=== PATIENT | male | born 1960 | race African-American/Black ===

== ENCOUNTER 2016-10-31 11:07 | Emergency (ER) | payer MEDICAID ==
[~2016-10-31] VITALS: Ht 188 cm; Wt 98.0 kg
[2016-10-31] MEDS ORDERED: HYDRALAZINE 20MG/ML VIAL IV ONE (12:30)
[2016-10-31 12:42] LABS: BASOPHILS % 0.6 % (0.0-2.0); HEMATOCRIT. 40.9 % (42.0-52.0); HEMOGLOBIN. 12.8 g/dL (14.0-18.0); LYMPHOCYTES % 15.1 % (20.0-50.0); MEAN CORPUSCULAR HEMOGLOBIN 21.6 pg (28.0-32.0); MEAN CORPUSCULAR VOLUME 69.2 fL (80.0-94.0); MEAN PLATELET VOLUME 7.8 fl (7.4-10.4); MONOCYTES % 5.5 % (2.0-8.0); NEUTROPHILS % 76.8 % (40.0-76.0); PLATELET 248 x1000/uL (130-400); RED BLOOD CELL COUNT 5.91 mill/uL (4.7-6.1); RED CELL DISTRIBUTION WIDTH 15.3 % (11.6-14.6)
[2016-10-31 12:49] LABS: PROTHROMBIN TIME 10.6 sec
[2016-10-31 12:59] LABS: CARBON DIOXIDE 34 mEq/L (21-32); CHLORIDE 101 mEq/L (98-107); ETHANOL BLOOD < 10 mg/dL; TROPONIN I 0.12 ng/mL (0.00-0.04)
[2016-10-31 13:06] LABS: PLATELET ESTIMATE NORMAL
[2016-10-31 13:29] VITALS: BP 209/115
[2016-10-31 13:29] LABS: *AMPHETAMINES SCREEN URINE NEGATIVE (NEGATIVE); *BARBITURATES SCREEN URINE NEGATIVE (NEGATIVE); *BENZODIAZEPINES SCREEN URINE NEGATIVE (NEGATIVE); *COCAINE SCREEN URINE NEGATIVE (NEGATIVE); CANNABINOID URINE SCREEN NEGATIVE (NEGATIVE); METHADONE URINE SCREEN NEGATIVE (NEGATIVE); OPIATES URINE SCREEN NEGATIVE (NEGATIVE); PHENCYCLIDINE URINE SCREEN NEGATIVE (NEGATIVE)
[2016-11-01] MEDS ORDERED: HUM10VIA9 SQ (15:40)
[2016-11-02] MEDS ORDERED: HYDR-4135 PO (12:19)
[2016-11-02] MEDS ORDERED: AMLO10TA80 PO (12:19)
[2016-11-02] MEDS ORDERED: ASPI-1160 PO (12:19)
[2016-11-02] MEDS ORDERED: FURO-151 PO (12:19)
== END 2016-10-31 13:54 | disposition left against medical advice (07) ==
LOC: ER 12:20 → CANBEDREQ 20:05
DX: I10 Essential (primary) hypertension (principal); E11.9 Type 2 diabetes mellitus without complications
CPT/HCPCS: 36415; 70450; 71010; 80053; 80305; 83880; 84484; 85025; 85610; 93005; 96374; 99285; G0482; J0360; Z7610

== ENCOUNTER 2016-12-02 12:15 | Emergency (ER) | payer SELFPAY ==
[~2016-12-02] VITALS: Ht 188 cm; Wt 96.0 kg
[~2016-12-02 12:15] MED LIST: AMLO10TA80 PO; ASPI-1160 PO; FURO-151 PO; HYDR-4135 PO
[2016-12-02 13:33] LABS: CARBON DIOXIDE 31 mEq/L (21-32); CHLORIDE 100 mEq/L (98-107)
[2016-12-02] MEDS ORDERED: AMLODIPINE 10MG TABLET PO ONE (14:00)
[2016-12-02 14:04] VITALS: BP 173/89
== END 2016-12-02 14:07 | disposition home or self-care (01) ==
LOC: ER 13:13
DX: I10 Essential (primary) hypertension (principal); E11.9 Type 2 diabetes mellitus without complications; Z79.82 Long term (current) use of aspirin
CPT/HCPCS: 36415; 80048; 99283

== ENCOUNTER 2017-06-29 12:18 | Inpatient (IN) | payer OTHER ==
[~2017-06-29] VITALS: Ht 188 cm; Wt 93.9 kg
[2017-06-29] MEDS ORDERED: SODIUM CHLORIDE 0.9% 1,000 ML IV ONE (14:24)
[2017-06-29 14:46] LABS: HEMATOCRIT. 48.1 % (42.0-52.0); HEMOGLOBIN. 15.1 g/dL (14.0-18.0); MEAN CORPUSCULAR HEMOGLOBIN 22.6 pg (28.0-32.0); MEAN CORPUSCULAR VOLUME 71.9 fL (80.0-94.0); MEAN PLATELET VOLUME 8.6 fl (7.4-10.4); PLATELET 209 x1000/uL (130-400); RED BLOOD CELL COUNT 6.69 mill/uL (4.7-6.1); RED CELL DISTRIBUTION WIDTH 15.5 % (11.6-14.6)
[2017-06-29 15:01] LABS: AMYLASE 65 IU/L (25-115); CHLORIDE 95 mEq/L (98-107)
[2017-06-29 15:02] LABS: BETA HYDROXYBUTYRATE 7.1 mMol/L (0.0-0.3)
[2017-06-29] MEDS ORDERED: INSULIN REGULAR (HUMULIN R) 300UNITS/3ML IV ONE (15:30)
[2017-06-29 15:50] LABS: BG BASE EXCESS -17.3 mmol/L (-2.0-2.0); BG CARBOXYHEMOGLOBIN 0.9 % (0.5-1.5); BG DEOXYHEMOGLOBIN 2.8 % (0.0-5.0); BG FRACTION INSPIRED OXYGEN 21; BG HCO3 ACT 9.3 mmol/L (22.0-26.0); BG METHEMOGLOBIN 0.3 % (0.0-1.5); BG OXYGEN SATURATION 97.2 % (92.0-98.5); BG PCO2 25.7 mmHg (35.0-45.0); BG PH 7.178 (7.350-7.450); BG PO2 102.8 mmHg (75.0-100.0); BG SAMPLE SITE RIGHT BRACHIAL; BG VENT MODE ROOM AIR
[2017-06-29 16:18] LABS: PLATELET ESTIMATE NORMAL
[2017-06-29] MEDS: INSULIN REGULAR (DRIP) 100 UNITS in SODIUM CHLORIDE 0.9% 99 ML IV SCH ×2 (16:30→20:00)
[2017-06-29] MEDS ORDERED: DEXT 5%/0.45% NACL 1000ML 1,000 ML IV SCH (18:45)
[2017-06-29] MEDS ORDERED: ONDANSETRON HCL 4MG/2ML INJ IV PRN (18:45)
[2017-06-29] MEDS ORDERED: SODIUM CHLORIDE 0.45% 1,000 ML IV SCH (18:45)
[2017-06-29] MEDS ORDERED: DEXTROSE 50% WATER 50ML SYRINGE IV PRN ×2 (18:45)
[2017-06-29] MEDS: BLOOD SUGAR DIAGNOSTIC STRIP TEST SCH ×5 (19:00→23:03)
[2017-06-29 19:22] VITALS: BP 147/80
[2017-06-29 19:36] LABS: PHOSPHORUS 4.7 mg/dL (2.5-4.9)
[2017-06-29 20:00] VITALS: BP 151/86
[2017-06-29] MEDS: INSULIN REGULAR (DRIP) 100 UNITS in SODIUM CHLORIDE 0.9% 100 ML IV SCH ×2 (20:07→22:05)
[2017-06-29 21:00] VITALS: BP 167/96
[2017-06-29] MEDS: ENOXAPARIN 40MG/0.4ML SYR SUBCUT SCH (21:00)
[2017-06-29 22:00] VITALS: BP 173/97
[2017-06-29 23:01] VITALS: BP 163/95
[2017-06-30] VITALS (20 sets, daily range): BP systolic 125–173; BP diastolic 60–101
[2017-06-30] MEDS: BLOOD SUGAR DIAGNOSTIC STRIP TEST SCH ×19 (00:16→20:35)
[2017-06-30] MEDS: DEXT 5%/0.45% NACL 1000ML 1,000 ML IV SCH ×3 (01:22→08:00)
[2017-06-30 09:02] LABS: BASOPHILS % 0.1 % (0.0-2.0); HEMATOCRIT. 42.5 % (42.0-52.0); HEMOGLOBIN. 13.6 g/dL (14.0-18.0); LYMPHOCYTES % 9.7 % (20.0-50.0); MEAN CORPUSCULAR HEMOGLOBIN 21.9 pg (28.0-32.0); MEAN CORPUSCULAR VOLUME 68.5 fL (80.0-94.0); MEAN PLATELET VOLUME 8.3 fl (7.4-10.4); MONOCYTES % 9.9 % (2.0-8.0); NEUTROPHILS % 80.3 % (40.0-76.0); PLATELET 230 x1000/uL (130-400); RED BLOOD CELL COUNT 6.21 mill/uL (4.7-6.1)
[2017-06-30 09:24] LABS: CHLORIDE 106 mEq/L (98-107)
[2017-06-30] MEDS: AMLODIPINE 10MG TABLET PO SCH ×2 (09:28→09:30)
[2017-06-30] MEDS: PANTOPRAZOLE SODIUM 40 MG/VIAL IV SCH (09:28)
[2017-06-30] MEDS ORDERED: CLONIDINE 0.1MG TABLET PO SCH (12:00)
[2017-06-30] MEDS: AZITHROMYCIN 500 MG TABLET PO SCH (12:57)
[2017-06-30] MEDS ORDERED: INSULIN GLARGINE UD 100 UNITS/ML SYR SUBCUT SCH (13:00)
[2017-06-30] MEDS: INSULIN REGULAR (DRIP) 100 UNITS in SODIUM CHLORIDE 0.9% 100 ML IV SCH (14:58)
[2017-06-30] MEDS: INSULIN LISPRO 100 UNITS/ML SUBCUT SCH ×2 (17:51→20:30)
[2017-06-30] MEDS ORDERED: THROAT LOZENGES-BENZOCAINE/MENTH/CETYLPYRD CL LOZENGES MM PRN (18:30)
[2017-06-30] MEDS: CLONIDINE 0.1MG TABLET PO PRN (20:27)
[2017-06-30] MEDS: ENOXAPARIN 40MG/0.4ML SYR SUBCUT SCH (20:28)
[2017-06-30] MEDS ORDERED: ACETAMINOPHEN 325MG TABLET PO PRN (23:15)
[2017-07-01] VITALS: BP 152/95
[2017-07-01 01:27] VITALS: BP 163/86
[2017-07-01 04:00] VITALS: BP 163/86
[2017-07-01] MEDS: BLOOD SUGAR DIAGNOSTIC STRIP TEST SCH ×2 (06:30→12:33)
[2017-07-01 08:00] VITALS: BP 153/90
[2017-07-01] MEDS: AZITHROMYCIN 500 MG TABLET PO SCH (08:39)
[2017-07-01] MEDS: PANTOPRAZOLE SODIUM 40 MG/VIAL IV SCH (08:39)
[2017-07-01] MEDS: AMLODIPINE 10MG TABLET PO SCH (08:41)
[2017-07-01] MEDS: INSULIN LISPRO 100 UNITS/ML SUBCUT SCH ×2 (08:42→13:04)
[2017-07-01] MEDS ORDERED: LOSARTAN POTASSIUM 50 MG TABLET PO SCH (09:00)
[2017-07-01] MEDS: CLONIDINE 0.1MG TABLET PO PRN (09:55)
[2017-07-01] MEDS ORDERED: INSULIN GLARGINE UD 100 UNITS/ML SYR SUBCUT SCH (10:00)
[2017-07-01 12:00] VITALS: BP 140/83
[2017-07-01 14:20] VITALS: BP 140/83
[2017-07-02] MEDS ORDERED: FAMOTIDINE 20MG TABLET PO SCH (09:00)
== END 2017-07-01 15:10 | disposition home or self-care (01) | DRG 638 ==
LOC: ER 13:41 → CVICU 15:20 → EDBEDREQ 15:56 → ENRESERV 16:01 → 6EST 07-01 00:42
PROVIDERS: ADMIT Internal Medicine; ATTEND Internal Medicine
DX: E11.10 Type 2 diabetes mellitus with ketoacidosis without coma (principal); N17.9 Acute kidney failure, unspecified; E11.22 Type 2 diabetes mellitus with diabetic chronic kidney disease; I10 Essential (primary) hypertension; J40 Bronchitis, not specified as acute or chronic; J06.9 Acute upper respiratory infection, unspecified; Z79.4 Long term (current) use of insulin; Z79.82 Long term (current) use of aspirin; Z79.899 Other long term (current) drug therapy; E11.65 Type 2 diabetes mellitus with hyperglycemia; N18.2 Chronic kidney disease, stage 2 (mild)
CPT/HCPCS: 36415; 36600; 71045; 80048; 82010; 82150; 82375; 82805; 82962; 83735; 84100; 86710; 87804; 93005; 96361; 96374; 99291; C9113; J1650; J1815; J3490; J7030; J7050

== ENCOUNTER 2021-02-22 15:49 | Emergency (ER) | payer MEDICAID, OTHER ==
[~2021-02-22] VITALS: Ht 188 cm; Wt 102.0 kg
[2021-02-22] MEDS ORDERED: AMLODIPINE 10MG TABLET PO ONE (16:30)
[2021-02-22] MEDS ORDERED: SODIUM CHLORIDE 0.9% 1,000 ML IV ONE ×2 (16:30→18:30)
[2021-02-22] MEDS ORDERED: INS NPH/REG HM 70-30 100 UNITS/ML 3ML VIAL (HUMULIN 70-30) SUBCUT ONE (16:30)
[2021-02-22 16:41] LABS: BASOPHILS % 0.9 % (0.0-2.0); EOSINOPHILS % 6.6 % (0.0-5.0); HEMATOCRIT. 41.9 % (42.0-52.0); HEMOGLOBIN. 12.9 g/dL (14.0-18.0); LYMPHOCYTES % 22.1 % (20.0-50.0); MEAN CORPUSCULAR HEMOGLOBIN 21.9 pg (28.0-32.0); MEAN CORPUSCULAR VOLUME 71.3 fL (80.0-94.0); MEAN PLATELET VOLUME 9.3 fl (7.4-10.4); MONOCYTES % 6.3 % (2.0-8.0); NEUTROPHILS % 64.1 % (40.0-76.0); PLATELET 232 x1000/uL (130-400); RED BLOOD CELL COUNT 5.88 mill/uL (4.7-6.1); RED CELL DISTRIBUTION WIDTH 14.7 % (11.6-14.6)
[2021-02-22 16:47] LABS: CHLORIDE 92 mEq/L (98-107)
[2021-02-22 17:01] LABS: CLARITY URINE CLEAR (CLEAR); COLOR URINE YELLOW (YELLOW); KETONES URINE 1+ (NEGATIVE); LEUKOCYTE ESTERASE URINE NEGATIVE (NEGATIVE); NITRITE URINE NEGATIVE (NEGATIVE); OCCULT BLOOD URINE 1+ (NEGATIVE); PROTEIN URINE 2+ (NEGATIVE); SPECIFIC GRAVITY URINE 1.029 (1.005-1.030); UROBILINOGEN URINE 0.2 E.U./dL (0.2-1.0)
[2021-02-22 18:10] VITALS: BP 180/80
[2021-02-22] MEDS ORDERED: INSULIN REGULAR (HUMULIN R) 300UNITS/3ML VIAL SUBCUT ONE (18:30)
[2021-02-22] MEDS ORDERED: INSU100I24 SQ (18:31)
[2021-02-22] MEDS ORDERED: AMLO5TAB4 MT (18:34)
== END 2021-02-22 20:10 | disposition left against medical advice (07) ==
LOC: ER 15:49
DX: E11.65 Type 2 diabetes mellitus with hyperglycemia (principal); I10 Essential (primary) hypertension; Z98.890 Other specified postprocedural states; Z79.899 Other long term (current) drug therapy; Z79.82 Long term (current) use of aspirin
CPT/HCPCS: 36415; 80053; 81003; 82962; 85025; 93005; 96360; 96372; 99284; J1815; J7030

== ENCOUNTER 2021-04-01 13:31 | Emergency (ER) | payer MEDICAID ==
[~2021-04-01] VITALS: Ht 188 cm; Wt 102.0 kg
[~2021-04-01 13:31] MED LIST changes: +AMLO5TAB4 MT; +INSU100I24 SQ
[2021-04-01] MEDS ORDERED: AMLO5TAB88 MT (15:39)
[2021-04-01 16:02] VITALS: BP 160/80
== END 2021-04-01 16:03 | disposition home or self-care (01) ==
LOC: ER 13:31
DX: Z76.0 Encounter for issue of repeat prescription (principal); I10 Essential (primary) hypertension
CPT/HCPCS: 99282; 99283

== ENCOUNTER 2021-09-06 17:48 | Inpatient (IN) | payer MEDICAID, OTHER ==
[~2021-09-06] VITALS: Ht 188 cm; Wt 93.0 kg
[~2021-09-06 17:48] MED LIST changes: +AMLO5TAB88 MT
[2021-09-06 18:51] LABS: HEMATOCRIT. 41.1 % (42.0-52.0); HEMOGLOBIN. 11.7 g/dL (14.0-18.0); MEAN CORPUSCULAR HEMOGLOBIN 22.1 pg (28.0-32.0); MEAN CORPUSCULAR VOLUME 77.4 fL (80.0-94.0); MEAN PLATELET VOLUME 10.6 fl (7.4-10.4); PLATELET 294 x1000/uL (130-400); RED BLOOD CELL COUNT 5.31 mill/uL (4.7-6.1)
[2021-09-06] MEDS ORDERED: SODIUM CHLORIDE 0.9% 1,000 ML IV ONE (19:00)
[2021-09-06 19:04] LABS: CHLORIDE 81 mEq/L (98-107)
[2021-09-06 19:14] LABS: PLATELET ESTIMATE NORMAL
[2021-09-06 19:26] LABS: CLARITY URINE CLEAR (CLEAR); COLOR URINE YELLOW (YELLOW); KETONES URINE 1+ (NEGATIVE); LEUKOCYTE ESTERASE URINE NEGATIVE (NEGATIVE); NITRITE URINE NEGATIVE (NEGATIVE); OCCULT BLOOD URINE NEGATIVE (NEGATIVE); PROTEIN URINE 1+ (NEGATIVE); SPECIFIC GRAVITY URINE 1.024 (1.005-1.030); UROBILINOGEN URINE 0.2 E.U./dL (0.2-1.0)
[2021-09-06] MEDS ORDERED: SODIUM CHLORIDE 0.9% 1,000 ML IV STA (19:39)
[2021-09-06] MEDS ORDERED: DEXTROSE 50% WATER 50ML SYRINGE IV NR (19:45)
[2021-09-06] MEDS ORDERED: CALCIUM CHLORIDE 1GM/10ML SYR IV NR (19:45)
[2021-09-06] MEDS ORDERED: SODIUM POLYSTYRENE SULFONATE 15 G/60 ML BOT PO NR (19:45)
[2021-09-06] MEDS ORDERED: ALBUTEROL (0.083%) 2.5MG/3ML NEB HHN NR (19:45)
[2021-09-06] MEDS ORDERED: SODIUM BICARBONATE 8.4% 1 MEQ/ML 50ML SYR IV NR ×2 (20:45→21:00)
[2021-09-06] MEDS ORDERED: INSULIN REGULAR (HUMULIN R) 300UNITS/3ML VIAL IV NR (20:45)
[2021-09-06] MEDS ORDERED: FUROSEMIDE 100MG/10ML VIAL IV NR (20:45)
[2021-09-06] MEDS ORDERED: INSULIN REGULAR (DRIP) 100 UNITS in SODIUM CHLORIDE 0.9% 100 ML IV ONE (21:00)
[2021-09-06] MEDS ORDERED: CALCIUM CHLORIDE IV NR (21:21)
[2021-09-06 22:25] LABS: BG BASE EXCESS -24.9 mmol/L (-2.0-2.0); BG CARBOXYHEMOGLOBIN 0.7 % (0.5-1.5); BG DEOXYHEMOGLOBIN 1.7 % (0.0-5.0); BG HCO3 ACT 3.5 mmol/L (22.0-26.0); BG METHEMOGLOBIN 0.3 % (0.0-1.5); BG OXYGEN SATURATION 98.3 % (92.0-98.5); BG OXYHEMOGLOBIN 97.3 % (94.0-97.0); BG PH 7.053 (7.350-7.450); BG PO2 149.6 mmHg (75.0-100.0); BG TOTAL HEMOGLOBIN 12.2 g/dL (12.0-18.0)
[2021-09-06] MEDS ORDERED: INSULIN REGULAR (DRIP) 100 UNITS in SODIUM CHLORIDE 0.9% 100 ML IV STA (23:33)
[2021-09-06] MEDS ORDERED: INSULIN REGULAR 100U/100ML PMX 100 ML IV NR (23:45)
[2021-09-06] MEDS ORDERED: INSULIN LISPRO 100 UNITS/ML SUBCUT NR (23:45)
[2021-09-06 23:47] LABS: PHOSPHORUS 10.1 mg/dL (2.5-4.9)
[2021-09-07 02:33] LABS: PHOSPHORUS 7.4 mg/dL (2.5-4.9)
[2021-09-07 07:48] LABS: HEMATOCRIT. 33.6 % (42.0-52.0); HEMOGLOBIN. 10.8 g/dL (14.0-18.0); MEAN CORPUSCULAR HEMOGLOBIN 21.8 pg (28.0-32.0); MEAN CORPUSCULAR VOLUME 68.1 fL (80.0-94.0); MEAN PLATELET VOLUME 9.2 fl (7.4-10.4); PLATELET 272 x1000/uL (130-400); RED BLOOD CELL COUNT 4.94 mill/uL (4.7-6.1); RED CELL DISTRIBUTION WIDTH 13.8 % (11.6-14.6)
[2021-09-07 07:56] LABS: PHOSPHORUS 2.4 mg/dL (2.5-4.9)
[2021-09-07] MEDS ORDERED: ONDANSETRON HCL 4MG/2ML INJ IV PRN (08:15)
[2021-09-07] MEDS ORDERED: DEXTROSE 50% WATER 50ML SYRINGE IV PRN (08:15)
[2021-09-07] MEDS: SODIUM CHLORIDE 0.9% 1,000 ML IV SCH ×2 (09:13→16:41)
[2021-09-07] MEDS: INSULIN GLARGINE 100 UNITS/ML SUBCUT SCH ×2 (10:27→22:06)
[2021-09-07 10:47] LABS: PLATELET ESTIMATE NORMAL
[2021-09-07 12:00] VITALS: BP 146/65
[2021-09-07] MEDS: BLOOD SUGAR DIAGNOSTIC STRIP TEST SCH ×3 (12:50→21:13)
[2021-09-07] MEDS: INSULIN LISPRO 100 UNITS/ML SUBCUT SCH ×5 (13:11→21:12)
[2021-09-07] MEDS ORDERED: AMLO5TAB88 MT (14:10)
[2021-09-07] MEDS ORDERED: HYDR25TA PO (14:10)
[2021-09-07] MEDS ORDERED: ASPI-1153 PO (14:10)
[2021-09-07] MEDS ORDERED: VALS320T16 PO (14:10)
[2021-09-07] MEDS ORDERED: METOPROLOL (14:10)
[2021-09-07] MEDS ORDERED: [UNRECOGNIZED DRUG - OTHER] (14:11)
[2021-09-07] MEDS ORDERED: SODIUM PHOS,M-BASIC-D-BASIC 15 MM in DEXT 5% WATER 245 ML IV SCH (15:00)
[2021-09-07] MEDS: BENZONATATE 100MG CAPSULE PO PRN (15:44)
[2021-09-07 16:00] VITALS: BP 150/67
[2021-09-07 16:04] VITALS: BP 146/65
[2021-09-07 20:00] VITALS: BP 128/66
[2021-09-08] VITALS: BP 126/62
[2021-09-08] MEDS: SODIUM CHLORIDE 0.9% 1,000 ML IV SCH ×2 (01:38→08:44)
[2021-09-08 04:00] VITALS: BP 143/66
[2021-09-08] MEDS: ACETAMINOPHEN 325MG TABLET PO PRN ×3 (04:12→11:07)
[2021-09-08] MEDS: BLOOD SUGAR DIAGNOSTIC STRIP TEST SCH ×2 (07:20→12:58)
[2021-09-08] MEDS: INSULIN LISPRO 100 UNITS/ML SUBCUT SCH ×4 (07:20→13:09)
[2021-09-08 08:00] VITALS: BP 150/83
[2021-09-08 08:41] LABS: PHOSPHORUS 2.8 mg/dL (2.5-4.9)
[2021-09-08 08:52] LABS: HEMATOCRIT. 38.6 % (42.0-52.0); HEMOGLOBIN. 12.2 g/dL (14.0-18.0); MEAN CORPUSCULAR VOLUME 69.8 fL (80.0-94.0); MEAN PLATELET VOLUME 9.3 fl (7.4-10.4); PLATELET 216 x1000/uL (130-400); RED BLOOD CELL COUNT 5.53 mill/uL (4.7-6.1); RED CELL DISTRIBUTION WIDTH 14.3 % (11.6-14.6)
[2021-09-08] MEDS ORDERED: AMLODIPINE 10MG TABLET PO SCH (10:30)
[2021-09-08] MEDS: INSULIN GLARGINE 100 UNITS/ML SUBCUT SCH (10:51)
[2021-09-08 12:00] VITALS: BP 163/90
[2021-09-08] MEDS ORDERED: INSU100I28 SQ (13:11)
[2021-09-08 13:27] VITALS: BP 116/66
[2021-09-08] MEDS: BENZONATATE 100MG CAPSULE PO PRN (13:53)
[2021-09-08 14:33] LABS: PLATELET ESTIMATE NORMAL
== END 2021-09-08 14:40 | disposition home or self-care (01) | DRG 420 ==
LOC: ER 17:48 → MICUSO 20:35 → 6EST 09-07 11:01
PROVIDERS: ADMIT Internal Medicine; ATTEND Internal Medicine
DX: E11.10 Type 2 diabetes mellitus with ketoacidosis without coma (principal); N17.0 Acute kidney failure with tubular necrosis; E87.8 Other disorders of electrolyte and fluid balance, not elsewhere classified; E87.1 Hypo-osmolality and hyponatremia; E87.5 Hyperkalemia; E78.5 Hyperlipidemia, unspecified; D72.829 Elevated white blood cell count, unspecified; D64.9 Anemia, unspecified; I12.9 Hypertensive chronic kidney disease with stage 1 through stage 4 chronic kidney disease, or unspecified chronic kidney disease; E11.22 Type 2 diabetes mellitus with diabetic chronic kidney disease; N18.2 Chronic kidney disease, stage 2 (mild); Z79.4 Long term (current) use of insulin; Z79.82 Long term (current) use of aspirin; Z79.899 Other long term (current) drug therapy; Z82.49 Family history of ischemic heart disease and other diseases of the circulatory system
CPT/HCPCS: 36415; 36600; 71045; 80048; 80053; 81003; 82010; 82375; 82805; 82962; 83036; 83735; 84100; 84145; 84484; 85025; 93005; 93306; 94640; 99291; J1815; J1940; J3490; J7030; J7050; J7060

== ENCOUNTER 2021-12-19 12:59 | Inpatient (IN) | payer OTHER ==
[2021-12-19] VITALS (11 sets, daily range): BP systolic 119–133; BP diastolic 61–95
[~2021-12-19] VITALS: Ht 188 cm; Wt 93.4 kg
[~2021-12-19 12:59] MED LIST changes: +ASPI-1153 PO; -FURO-151 PO; +INSU100I28 SQ; +METOPROLOL; +VALS320T16 PO; +[UNRECOGNIZED DRUG - OTHER]
[2021-12-19] MEDS ORDERED: SODIUM CHLORIDE 0.9% 1,000 ML IV ONE (13:15)
[2021-12-19 13:26] LABS: HEMATOCRIT. 34.5 % (42.0-52.0); HEMOGLOBIN. 9.4 g/dL (14.0-18.0); MEAN CORPUSCULAR HEMOGLOBIN 21.4 pg (28.0-32.0); MEAN CORPUSCULAR VOLUME 78.9 fL (80.0-94.0); MEAN PLATELET VOLUME 9.9 fl (7.4-10.4); PLATELET 324 x1000/uL (130-400); RED BLOOD CELL COUNT 4.37 mill/uL (4.7-6.1)
[2021-12-19 13:32] LABS: CHLORIDE 76 mEq/L (98-107)
[2021-12-19] MEDS ORDERED: LACTATED RINGERS 1,000 ML IV STA (13:51)
[2021-12-19] MEDS ORDERED: INSULIN REGULAR (DRIP) 100 UNITS in SODIUM CHLORIDE 0.9% 100 ML IV ONE (14:00)
[2021-12-19] MEDS ORDERED: DEXTROSE 50% WATER 50ML SYRINGE IV ONE (14:00)
[2021-12-19] MEDS ORDERED: ALBUTEROL (0.083%) 2.5MG/3ML NEB HHN ONE (14:00)
[2021-12-19] MEDS ORDERED: CALCIUM CHLORIDE 1GM/10ML SYR IV ONE (14:00)
[2021-12-19] MEDS ORDERED: INSULIN REGULAR (HUMULIN R) 300UNITS/3ML VIAL IV ONE (14:00)
[2021-12-19 14:27] LABS: PLATELET ESTIMATE NORMAL
[2021-12-19] MEDS ORDERED: INSULIN REGULAR 100U/100ML PMX 100 ML IV NR (14:30)
[2021-12-19] MEDS ORDERED: ONDANSETRON HCL 4MG/2ML INJ IV PRN (17:45)
[2021-12-19] MEDS ORDERED: CLONIDINE 0.1MG TABLET PO PRN (17:45)
[2021-12-19] MEDS ORDERED: DIPHENHYDRAMINE 50MG/ML VIAL IV PRN (17:45)
[2021-12-19] MEDS ORDERED: HYDROCODONE/ACETAMINOPHEN 5/325MG TABLET PO PRN (17:45)
[2021-12-19] MEDS ORDERED: MAGNESIUM/ALUMINUM HYDROXIDE/SIMETHICONE 30ML UDC PO PRN (17:45)
[2021-12-19] MEDS ORDERED: GUAIFENESIN 200MG/10ML SUGAR FREE UDC PO PRN (17:45)
[2021-12-19] MEDS ORDERED: ENOXAPARIN 40MG/0.4ML SYR SUBCUT SCH (17:45)
[2021-12-19] MEDS ORDERED: DOCUSATE SODIUM 100MG CAPSULE PO PRN (17:45)
[2021-12-19] MEDS ORDERED: IPRATROPIUM/ALBUTEROL 0.5-3(2.5)MG/3ML NEB HHN PRN (17:45)
[2021-12-19] MEDS ORDERED: MORPHINE SULFATE 2 MG/ML CPJ (NOT FOR IM USE) IV PRN (17:45)
[2021-12-19] MEDS ORDERED: DEXTROSE 50% WATER 50ML SYRINGE IV PRN ×2 (17:45)
[2021-12-19] MEDS ORDERED: ACETAMINOPHEN 325MG TABLET PO PRN (17:45)
[2021-12-19] MEDS ORDERED: HYDRALAZINE 20MG/ML VIAL IV PRN (17:45)
[2021-12-19] MEDS ORDERED: NALOXONE HCL 0.4MG/ML VIAL IV PRN (18:00)
[2021-12-19] MEDS: SODIUM CHLORIDE 0.45% 1,000 ML IV SCH (18:35)
[2021-12-19] MEDS: BLOOD SUGAR DIAGNOSTIC STRIP TEST SCH ×2 (18:35→18:59)
[2021-12-19 18:57] LABS: PHOSPHORUS 8.6 mg/dL (2.5-4.9)
[2021-12-19] MEDS: ENOXAPARIN 30MG/0.3ML SYR SUBCUT SCH (18:59)
[2021-12-19] MEDS ORDERED: SODIUM BICARBONATE 8.4% 1 MEQ/ML 50ML SYR IV NR (20:15)
[2021-12-19] MEDS: INSULIN REGULAR 100U/100ML PMX 100 ML IV SCH (20:30)
[2021-12-19 20:33] LABS: PHOSPHORUS 4.7 mg/dL (2.5-4.9)
[2021-12-19] MEDS ORDERED: SODIUM CHLORIDE 0.9% INJ 3ML FLUSH IVF SCH (22:00)
[2021-12-20] VITALS (49 sets, daily range): BP systolic 92–145; BP diastolic 46–76
[2021-12-20] MEDS: INSULIN REGULAR 100U/100ML PMX 100 ML IV SCH (00:11)
[2021-12-20] MEDS: SODIUM CHLORIDE 0.45% 1,000 ML IV SCH ×2 (02:14→12:25)
[2021-12-20] MEDS: BLOOD SUGAR DIAGNOSTIC STRIP TEST SCH ×10 (05:05→21:00)
[2021-12-20 05:32] LABS: CHLORIDE 105 mEq/L (98-107)
[2021-12-20 05:35] LABS: HEMATOCRIT. 32.9 % (42.0-52.0); HEMOGLOBIN. 10.4 g/dL (14.0-18.0); MEAN CORPUSCULAR HEMOGLOBIN 21.3 pg (28.0-32.0); MEAN CORPUSCULAR VOLUME 67.6 fL (80.0-94.0); MEAN PLATELET VOLUME 8.7 fl (7.4-10.4); PLATELET 318 x1000/uL (130-400); RED BLOOD CELL COUNT 4.87 mill/uL (4.7-6.1); RED CELL DISTRIBUTION WIDTH 14.6 % (11.6-14.6)
[2021-12-20 07:28] LABS: PLATELET ESTIMATE NORMAL
[2021-12-20] MEDS ORDERED: POTASSIUM CHLORIDE INJ 60 MEQ in DEXT 5% WATER 500 ML IV NR (08:00)
[2021-12-20] MEDS ORDERED: DEXTROSE 50% WATER 50ML SYRINGE IV PRN (12:30)
[2021-12-20] MEDS: INSULIN GLARGINE 100 UNITS/ML SUBCUT SCH (14:39)
[2021-12-20] MEDS: ENOXAPARIN 30MG/0.3ML SYR SUBCUT SCH (18:59)
[2021-12-20] MEDS: INSULIN LISPRO 100 UNITS/ML SUBCUT SCH ×2 (19:00→21:38)
[2021-12-21 04:00] VITALS: BP 137/57
[2021-12-21 05:58] LABS: HEMATOCRIT. 35.4 % (42.0-52.0); HEMOGLOBIN. 11.1 g/dL (14.0-18.0); MEAN CORPUSCULAR HEMOGLOBIN 21.4 pg (28.0-32.0); MEAN CORPUSCULAR VOLUME 68.1 fL (80.0-94.0); MEAN PLATELET VOLUME 8.9 fl (7.4-10.4); PLATELET 270 x1000/uL (130-400); RED BLOOD CELL COUNT 5.19 mill/uL (4.7-6.1); RED CELL DISTRIBUTION WIDTH 15.5 % (11.6-14.6)
[2021-12-21] MEDS: BLOOD SUGAR DIAGNOSTIC STRIP TEST SCH ×4 (06:47→20:47)
[2021-12-21] MEDS: INSULIN LISPRO 100 UNITS/ML SUBCUT SCH ×4 (06:57→20:46)
[2021-12-21 08:00] VITALS: BP 117/56
[2021-12-21] MEDS: SODIUM CHLORIDE 0.9% 1,000 ML IV SCH ×2 (09:19→18:16)
[2021-12-21] MEDS: INSULIN GLARGINE 100 UNITS/ML SUBCUT SCH (09:20)
[2021-12-21 12:00] VITALS: BP 138/73
[2021-12-21 16:00] VITALS: BP 137/72
[2021-12-21 16:44] LABS: PLATELET ESTIMATE NORMAL
[2021-12-21] MEDS: ENOXAPARIN 30MG/0.3ML SYR SUBCUT SCH (18:14)
[2021-12-21 20:00] VITALS: BP 137/79
[2021-12-22] VITALS: BP 132/76
[2021-12-22 04:00] VITALS: BP 118/67
[2021-12-22] MEDS: INSULIN LISPRO 100 UNITS/ML SUBCUT SCH ×2 (07:05→12:52)
[2021-12-22] MEDS: SODIUM CHLORIDE 0.9% 1,000 ML IV SCH (07:10)
[2021-12-22] MEDS: BLOOD SUGAR DIAGNOSTIC STRIP TEST SCH ×2 (07:41→11:39)
[2021-12-22 07:53] VITALS: BP 125/83
[2021-12-22 08:22] LABS: BASOPHILS % 0.3 % (0.0-2.0); EOSINOPHILS % 2.9 % (0.0-5.0); HEMATOCRIT. 31.6 % (42.0-52.0); HEMOGLOBIN. 10.1 g/dL (14.0-18.0); LYMPHOCYTES % 20.9 % (20.0-50.0); MEAN CORPUSCULAR HEMOGLOBIN 21.7 pg (28.0-32.0); MEAN CORPUSCULAR VOLUME 68.1 fL (80.0-94.0); MEAN PLATELET VOLUME 8.9 fl (7.4-10.4); MONOCYTES % 8.3 % (2.0-8.0); NEUTROPHILS % 67.6 % (40.0-76.0); PLATELET 239 x1000/uL (130-400); RED BLOOD CELL COUNT 4.64 mill/uL (4.7-6.1); RED CELL DISTRIBUTION WIDTH 14.8 % (11.6-14.6)
[2021-12-22 08:43] LABS: PHOSPHORUS 2.5 mg/dL (2.5-4.9)
[2021-12-22] MEDS: INSULIN GLARGINE 100 UNITS/ML SUBCUT SCH (09:35)
[2021-12-22 12:00] VITALS: BP 144/79
[2021-12-22 14:06] VITALS: BP 144/79
[2021-12-22] MEDS ORDERED: ENOXAPARIN 40MG/0.4ML SYR SUBCUT SCH (14:50)
== END 2021-12-22 15:15 | disposition home or self-care (01) | DRG 282 ==
LOC: ER 12:59 → MICUNO 14:27 → EDBEDREQTM 14:29 → EDBEDREQ 14:29 → ENRESERV 16:28 → MICUSO 18:34 → MICUNO 12-20 03:54 → 8WST 12-20 22:46
PROVIDERS: ADMIT Internal Medicine; ATTEND Internal Medicine
DX: K85.90 Acute pancreatitis without necrosis or infection, unspecified (principal); N17.0 Acute kidney failure with tubular necrosis; E11.10 Type 2 diabetes mellitus with ketoacidosis without coma; R65.10 Systemic inflammatory response syndrome (SIRS) of non-infectious origin without acute organ dysfunction; E87.1 Hypo-osmolality and hyponatremia; E87.5 Hyperkalemia; Z20.822 Contact with and (suspected) exposure to COVID-19; E11.22 Type 2 diabetes mellitus with diabetic chronic kidney disease; E78.5 Hyperlipidemia, unspecified; E87.6 Hypokalemia; I12.9 Hypertensive chronic kidney disease with stage 1 through stage 4 chronic kidney disease, or unspecified chronic kidney disease; K29.70 Gastritis, unspecified, without bleeding; N18.30 Chronic kidney disease, stage 3 unspecified; Z79.4 Long term (current) use of insulin; Z79.899 Other long term (current) drug therapy; Z82.49 Family history of ischemic heart disease and other diseases of the circulatory system; Z83.3 Family history of diabetes mellitus; Z91.19 Patient's noncompliance with other medical treatment and regimen; Z79.82 Long term (current) use of aspirin
CPT/HCPCS: 36415; 71045; 74176; 80048; 80053; 82010; 82962; 83605; 83735; 84100; 84484; 85025; 87426; 93005; 93970; 99291; J1650; J1815; J2405; J3480; J3490; J7030; J7060; J7120

== ENCOUNTER 2024-02-08 17:41 | Emergency (ER) | payer MEDICARE, MEDICAID ==
[~2024-02-08 17:41] MED LIST changes: -AMLO5TAB4 MT; -AMLO5TAB88 MT; +AMOX1TAB16 MT; -ASPI-1153 PO; -ASPI-1160 PO; +ATOR40TA70 PO; +FURO40TA5 PO; +HYDR-2988 PO; -HYDR-4135 PO; -INSU100I24 SQ; -INSU100I28 SQ; +INSU100I94 SUBCUT; +METO-385 PO; -METOPROLOL; -[UNRECOGNIZED DRUG - OTHER]
[2024-02-08] MEDS: DEXTROSE 50% WATER 50ML SYRINGE IV ONE ×3 (17:45→17:46)
[2024-02-08] MEDS: SODIUM CHLORIDE 0.9% 1,000 ML IV ONE ×2 (17:45→23:00)
[2024-02-08 19:16] LABS: CLARITY URINE CLEAR (CLEAR); COLOR URINE YELLOW (YELLOW); GLUCOSE URINE NEGATIVE (NEGATIVE); KETONES URINE NEGATIVE (NEGATIVE); LEUKOCYTE ESTERASE URINE NEGATIVE (NEGATIVE); NITRITE URINE NEGATIVE (NEGATIVE); OCCULT BLOOD URINE 1+ (NEGATIVE); PH URINE 5.5 (4.5-8.0); PROTEIN URINE 4+ (NEGATIVE); SPECIFIC GRAVITY URINE 1.017 (1.005-1.030); UROBILINOGEN URINE 0.2 E.U./dL (0.2-1.0)
[2024-02-08 19:34] LABS: *AMPHETAMINES SCREEN URINE NEGATIVE (NEGATIVE); *BARBITURATES SCREEN URINE NEGATIVE (NEGATIVE); *BENZODIAZEPINES SCREEN URINE NEGATIVE (NEGATIVE); *COCAINE SCREEN URINE NEGATIVE (NEGATIVE); CANNABINOID URINE SCREEN PRESUMPTIVE POSITIVE (NEGATIVE); ECSTASY MDMA SCREEN URINE NEGATIVE (NEGATIVE); METHADONE URINE SCREEN NEGATIVE (NEGATIVE); OPIATES URINE SCREEN NEGATIVE (NEGATIVE); PHENCYCLIDINE URINE SCREEN NEGATIVE (NEGATIVE)
[2024-02-08 19:41] LABS: BACTERIA URINE NONE SEEN; SQUAMOUS EPITHELIAL CELL URINE RARE /lpf (RARE/1+); WBC URINE NONE SEEN /hpf (0-2)
[2024-02-08 19:43] LABS: BG BASE EXCESS 0.1 mmol/L (-2.0-3.0); BG CARBOXYHEMOGLOBIN 0.2 % (0.5-1.5); BG DEOXYHEMOGLOBIN 3.3 % (0.0-5.0); BG FRACTION INSPIRED OXYGEN 21; BG METHEMOGLOBIN 0.3 % (0.5-1.5); BG OXYGEN SATURATION 96.7 % (94.0-98.0); BG OXYHEMOGLOBIN 96.2 % (94.0-98.0); BG PCO2 41.6 mmHg (35.0-48.0); BG PH 7.396 (7.350-7.450); BG SAMPLE SITE RIGHT RADIAL; BG TOTAL HEMOGLOBIN 10.1 g/dL (13.5-17.5); BG VENT MODE ROOM AIR
[2024-02-08] MEDS: HYDRALAZINE 20MG/ML VIAL IV ONE (19:58)
[2024-02-08 20:50] LABS: BASOPHILS % 0.7 % (0.0-2.0); EOSINOPHILS % 0.6 % (0.0-5.0); HEMATOCRIT. 31.2 % (42.0-52.0); HEMOGLOBIN. 9.9 g/dL (14.0-18.0); MEAN CORPUSCULAR HGB CONC 31.6 g/dL (31.0-37.0); MEAN CORPUSCULAR VOLUME 69.5 fL (80.0-94.0); MEAN PLATELET VOLUME 8.9 fl (7.4-10.4); NEUTROPHILS % 83.7 % (40.0-76.0); PLATELET 336 x1000/uL (130-400); RED CELL DISTRIBUTION WIDTH 15.6 % (11.6-14.6); WHITE BLOOD COUNT 7.7 x1000/uL (4.5-11.0)
[2024-02-08 20:55] LABS: ADD RBC MORPHOLOGY YES; DIFFERENTIAL COMMENT 1
[2024-02-08 20:59] LABS: CHLORIDE 110 mEq/L (98-107); POTASSIUM 5.4 mEq/L (3.5-5.1); SODIUM 140 mEq/L (136-145)
[2024-02-08 21:00] LABS: CARBON DIOXIDE 23 mEq/L (21-32)
[2024-02-08 21:01] LABS: CALCIUM 9.6 mg/dL (8.7-10.4)
[2024-02-08 21:03] LABS: INR 0.9; PROTHROMBIN TIME 10.3 sec (9.6-11.0)
[2024-02-08 21:05] LABS: CREATININE 2.7 mg/dL (0.6-1.3)
[2024-02-08 21:06] LABS: GLUCOSE 76 mg/dL (70-105); UREA NITROGEN BLOOD 36 mg/dL (9-23)
[2024-02-08 21:07] LABS: ALANINE AMINOTRANSFERASE 51 IU/L (10-49); ALBUMIN 4.1 g/dL (3.2-4.8); ASPARTATE AMINOTRANSFERASE 54 IU/L (<34)
[2024-02-08 21:08] LABS: BILIRUBIN TOTAL 0.2 mg/dL (0.1-1.0); LACTIC ACID 2.2 mmol/L (0.4-2.0); PROTEIN TOTAL 6.9 g/dL (6.0-8.3)
[2024-02-08 21:16] LABS: HYPOCHROMASIA 1+; MICROCYTOSIS 3+; PLATELET ESTIMATE NORMAL
[2024-02-08 21:40] LABS: BILIRUBIN DIRECT < 0.1 mg/dL (<=3.0)
[2024-02-08 21:41] LABS: ETHANOL BLOOD < 10 mg/dL (<10)
[2024-02-08 21:42] LABS: TROPONIN I HIGH SENSITIVITY 155 ng/L (3.0-53)
[2024-02-08 21:48] VITALS: BP 178/85; PULSE 88; RESP 21; O2SAT 99
[2024-02-08 22:19] LABS: BETA HYDROXYBUTYRATE 0.2 mMol/L (0.0-0.3)
[2024-02-08] MEDS ORDERED: NITROGLYCERIN 0.4MG TABLET SL SL PRN (22:30)
[2024-02-08] MEDS ORDERED: GUAIFENESIN 200MG/10ML SUGAR FREE UDC PO PRN (22:30)
[2024-02-08] MEDS ORDERED: DEXTROSE 50% WATER 50ML SYRINGE IV PRN (22:30)
[2024-02-08] MEDS: SODIUM POLYSTYRENE SULFONATE 15 G/60 ML BOT PO ONE (22:30)
[2024-02-08] MEDS ORDERED: ZOLPIDEM TARTRATE 5MG TABLET PO PRN (22:30)
[2024-02-08] MEDS ORDERED: CLONIDINE 0.1MG TABLET PO PRN (22:30)
[2024-02-08] MEDS ORDERED: ONDANSETRON HCL 4MG/2ML INJ IV PRN (22:30)
[2024-02-08] MEDS ORDERED: ACETAMINOPHEN 325MG TABLET PO PRN ×2 (22:30)
[2024-02-08] MEDS ORDERED: MAGNESIUM/ALUMINUM HYDROXIDE/SIMETHICONE 30ML UDC PO PRN (22:30)
[2024-02-08] MEDS: ENOXAPARIN 40MG/0.4ML SYR SUBCUT SCH (22:30)
[2024-02-08] MEDS ORDERED: DOCUSATE SODIUM 100MG CAPSULE PO PRN (22:30)
[2024-02-08] MEDS ORDERED: IPRATROPIUM/ALBUTEROL 0.5-3(2.5)MG/3ML NEB NEB PRN (22:30)
[2024-02-08] MEDS: ASPIRIN 325MG EC TABLET PO ONE (22:45)
[2024-02-09] MEDS ORDERED: HYDRALAZINE HCL 50MG TABLET PO SCH (06:00)
[2024-02-09] MEDS ORDERED: INSULIN LISPRO 100 UNITS/ML SUBCUT SCH (08:20)
[2024-02-09] MEDS ORDERED: BLOOD SUGAR DIAGNOSTIC STRIP TEST SCH (09:00)
[2024-02-09] MEDS ORDERED: METOPROLOL TARTRATE 25MG TABLET PO SCH (09:00)
[2024-02-09] MEDS ORDERED: FAMOTIDINE 20MG TABLET PO SCH (09:00)
[2024-02-09] MEDS ORDERED: AMLODIPINE 10MG TABLET PO SCH (09:00)
[2024-02-09] MEDS ORDERED: ASPIRIN 81MG EC TABLET PO SCH (09:00)
== END 2024-02-08 23:27 | disposition left against medical advice (07) ==
LOC: ER 17:41 → EDBEDREQ 18:19 → EDBEDREQTM 21:14 → ER 23:27
DX: E11.649 Type 2 diabetes mellitus with hypoglycemia without coma (principal); R55 Syncope and collapse; E87.5 Hyperkalemia; I12.0 Hypertensive chronic kidney disease with stage 5 chronic kidney disease or end stage renal disease; E11.22 Type 2 diabetes mellitus with diabetic chronic kidney disease; N18.6 End stage renal disease; Z79.4 Long term (current) use of insulin; Z79.899 Other long term (current) drug therapy
CPT/HCPCS: 80076; 80305; 80048; 81003; 82010; 80320; 82962; 83880; 83605; 83690; 85025; 85610; 87040; 87086; 84484; 36415; 84145; 71045; 70450; 82805; 82375; 93005; 96374; 96375; 99285; 36600; J0360; J7030; G0480

== ENCOUNTER 2024-12-29 09:08 | Inpatient (IN) | payer MEDICARE, MEDICAID ==
[~2024-12-29] VITALS: Ht 177.8 cm; Wt 80.7 kg
[~2024-12-29 09:08] MED LIST changes: -AMLO10TA80 PO; -AMOX1TAB16 MT; +CEFP100T8 MT; +LANTUSUD SUBCUT; +NIFE-32 PO; -VALS320T16 PO
[2024-12-29 09:15] VITALS: O2SAT 98
[2024-12-29 09:51] LABS: BASOPHILS % 0.8 % (0.0-2.0); EOSINOPHILS % 8.4 % (0.0-5.0); HEMATOCRIT. 27.2 % (42.0-52.0); HEMOGLOBIN. 8.7 g/dL (14.0-18.0); LYMPHOCYTES % 21.3 % (20.0-50.0); MEAN PLATELET VOLUME 6.9 fl (7.4-10.4); MONOCYTES % 9.2 % (2.0-8.0); NEUTROPHILS % 60.3 % (40.0-76.0); PLATELET 290 x1000/uL (130-400); RED BLOOD CELL COUNT 4.05 mill/uL (4.7-6.1); RED CELL DISTRIBUTION WIDTH 16.3 % (11.6-14.6)
[2024-12-29 10:13] LABS: ADD RBC MORPHOLOGY YES; CREATININE 4.3 mg/dL (0.6-1.3)
[2024-12-29] MEDS: SODIUM CHLORIDE 0.9% 1,000 ML IV ONE (10:46)
[2024-12-29 10:49] LABS: UREA NITROGEN BLOOD 67 mg/dL (9-23)
[2024-12-29 10:51] LABS: BILIRUBIN DIRECT < 0.1 mg/dL (<=3.0); BILIRUBIN TOTAL 0.4 mg/dL (0.1-1.0); PROTEIN TOTAL 7.0 g/dL (6.0-8.3)
[2024-12-29 10:52] LABS: ASPARTATE AMINOTRANSFERASE 36 IU/L (<34)
[2024-12-29 11:00] LABS: TROPONIN I HIGH SENSITIVITY 82 ng/L (3.0-53)
[2024-12-29 11:25] LABS: PLATELET ESTIMATE NORMAL
[2024-12-29 12:56] LABS: TROPONIN I HIGH SENSITIVITY 74 ng/L (3.0-53)
[2024-12-29 13:10] LABS: CLARITY URINE CLEAR (CLEAR); COLOR URINE YELLOW (YELLOW); GLUCOSE URINE 1+ (NEGATIVE); KETONES URINE NEGATIVE (NEGATIVE); LEUKOCYTE ESTERASE URINE NEGATIVE (NEGATIVE); NITRITE URINE NEGATIVE (NEGATIVE); OCCULT BLOOD URINE TRACE (NEGATIVE); PH URINE 5.5 (4.5-8.0); PROTEIN URINE 3+ (NEGATIVE); SPECIFIC GRAVITY URINE 1.008 (1.005-1.030); UROBILINOGEN URINE 0.2 E.U./dL (0.2-1.0)
[2024-12-29] MEDS ORDERED: DEXTROSE 50% WATER 50ML SYRINGE IV PRN (13:15)
[2024-12-29] MEDS ORDERED: DOCUSATE SODIUM 100MG CAPSULE PO PRN (13:15)
[2024-12-29] MEDS ORDERED: ACETAMINOPHEN 325MG TABLET PO PRN ×2 (13:15)
[2024-12-29] MEDS ORDERED: ONDANSETRON HCL 4MG/2ML INJ IV PRN (13:15)
[2024-12-29] MEDS ORDERED: IPRATROPIUM/ALBUTEROL 0.5-3(2.5)MG/3ML NEB HHN PRN (13:15)
[2024-12-29 14:56] LABS: FINE GRANULAR CASTS URINE 0-5 /lpf
[2024-12-29 15:04] LABS: RBC URINE NONE SEEN /hpf (0-2); WBC URINE 0-2 /hpf (0-2)
[2024-12-29 15:05] LABS: BACTERIA URINE NONE SEEN; SQUAMOUS EPITHELIAL CELL URINE NONE SEEN /lpf (RARE/1+)
[2024-12-29 15:15] VITALS: BP 173/79; PULSE 67; RESP 17; TEMP 36.1956
[2024-12-29 15:56] LABS: *AMPHETAMINES SCREEN URINE NEGATIVE (NEGATIVE); *BARBITURATES SCREEN URINE NEGATIVE (NEGATIVE); *BENZODIAZEPINES SCREEN URINE NEGATIVE (NEGATIVE); *COCAINE SCREEN URINE NEGATIVE (NEGATIVE); CANNABINOID URINE SCREEN NEGATIVE (NEGATIVE); ECSTASY MDMA SCREEN URINE NEGATIVE (NEGATIVE); METHADONE URINE SCREEN NEGATIVE (NEGATIVE); OPIATES URINE SCREEN NEGATIVE (NEGATIVE); PHENCYCLIDINE URINE SCREEN NEGATIVE (NEGATIVE)
[2024-12-29 16:00] VITALS: BP 190/90; PULSE 67; RESP 17; TEMP 36.3; O2SAT 99
[2024-12-29 16:51] LABS: CREATINE KINASE MB FRACTION 7.4 ng/mL (0.5-3.6)
[2024-12-29 16:57] LABS: TROPONIN I HIGH SENSITIVITY 79.0 ng/L (3.0-53)
[2024-12-29] MEDS: BLOOD SUGAR DIAGNOSTIC STRIP TEST SCH (17:10)
[2024-12-29] MEDS: HYDRALAZINE HCL 25MG TABLET PO SCH (17:44)
[2024-12-29] MEDS: ENOXAPARIN 30MG/0.3ML SYR SUBCUT SCH (17:45)
[2024-12-29] MEDS: INSULIN LISPRO 100 UNITS/ML SUBCUT SCH (17:49)
[2024-12-29] MEDS: FAMOTIDINE 20MG/2ML VIAL IV SCH (18:32)
[2024-12-29] MEDS: SODIUM CHLORIDE 0.9% 1,000 ML IV SCH (18:33)
[2024-12-29 20:00] VITALS: BP 194/97; PULSE 64; RESP 20; TEMP 36.2; O2SAT 98
[2024-12-29] MEDS: EPOETIN ALFA-EPBX 4,000 UNITS/ML VIAL SUBCUT SCH (20:25)
[2024-12-29] MEDS: CLONIDINE 0.1MG TABLET PO PRN (22:54)
[2024-12-30] VITALS: BP 181/82; PULSE 63; RESP 18; TEMP 36.7; O2SAT 99
[2024-12-30 04:00] VITALS: BP 170/74; PULSE 60; RESP 19; TEMP 36.4; O2SAT 99
[2024-12-30 09:30] VITALS: BP 227/106; PULSE 64; RESP 18; TEMP 36.7; O2SAT 98
[2024-12-30] MEDS: HYDRALAZINE HCL 50MG TABLET PO SCH (09:49)
[2024-12-30 11:43] LABS: BASOPHILS % 0.9 % (0.0-2.0); EOSINOPHILS % 6.8 % (0.0-5.0); HEMATOCRIT. 23.6 % (42.0-52.0); HEMOGLOBIN. 7.2 g/dL (14.0-18.0); LYMPHOCYTES % 20.4 % (20.0-50.0); MEAN PLATELET VOLUME 7.3 fl (7.4-10.4); MONOCYTES % 5.1 % (2.0-8.0); NEUTROPHILS % 66.8 % (40.0-76.0); PLATELET 242 x1000/uL (130-400); RED BLOOD CELL COUNT 3.41 mill/uL (4.7-6.1); RED CELL DISTRIBUTION WIDTH 17.0 % (11.6-14.6)
[2024-12-30] MEDS: FUROSEMIDE 40MG/4ML VIAL IVP NR (12:02)
[2024-12-30] MEDS: HYDRALAZINE 20MG/ML VIAL IV NR (12:05)
[2024-12-30 12:07] LABS: INR 1.0
[2024-12-30] MEDS: CLONIDINE 0.2MG TABLET PO NR (12:07)
[2024-12-30 12:08] VITALS: BP 236/113; PULSE 68; RESP 18; TEMP 36.4; O2SAT 98
[2024-12-30 12:30] LABS: CREATININE 4.2 mg/dL (0.6-1.3)
[2024-12-30 12:31] LABS: UREA NITROGEN BLOOD 53.0 mg/dL (9-23)
[2024-12-30] MEDS: NIFEDIPINE XL 60MG TAB PO SCH (13:00)
[2024-12-30] MEDS ORDERED: *PATIENT'S OWN MEDICATION STORAGE XX SCH (13:15)
[2024-12-30 13:39] VITALS: BP 153/80; PULSE 61
[2024-12-30] MEDS ORDERED: FURO-151 MT (14:21)
[2024-12-30] MEDS ORDERED: NIFE-32 MT (14:21)
[2024-12-30] MEDS ORDERED: CLON0.2T MT (14:21)
[2024-12-30] MEDS ORDERED: HYDR100T11 MT (14:21)
[2024-12-30 15:42] VITALS: BP 153/80; PULSE 61; RESP 20; TEMP 98.2
[2024-12-30 21:02] LABS: VITAMIN B12 SERUM 988 pg/mL (211-911)
[2024-12-31] MEDS ORDERED: INSU100I28 SQ (16:02)
== END 2024-12-30 17:05 | disposition home or self-care (01) | DRG 641 ==
LOC: ER 09:08 → 8WST 11:27 → EDBEDREQ 11:28 → EDBEDREQTM 11:28 → ENRESERV 11:49
PROVIDERS: ADMIT Internal Medicine; ATTEND Internal Medicine
DX: E87.5 Hyperkalemia (principal); N18.4 Chronic kidney disease, stage 4 (severe); E11.22 Type 2 diabetes mellitus with diabetic chronic kidney disease; I12.9 Hypertensive chronic kidney disease with stage 1 through stage 4 chronic kidney disease, or unspecified chronic kidney disease; E78.5 Hyperlipidemia, unspecified; I16.0 Hypertensive urgency; N40.0 Benign prostatic hyperplasia without lower urinary tract symptoms; K40.20 Bilateral inguinal hernia, without obstruction or gangrene, not specified as recurrent; R79.89 Other specified abnormal findings of blood chemistry; Z79.899 Other long term (current) drug therapy; Z91.199 Patient's noncompliance with other medical treatment and regimen due to unspecified reason; Z82.49 Family history of ischemic heart disease and other diseases of the circulatory system; Z83.3 Family history of diabetes mellitus
CPT/HCPCS: 36415; 71045; 76770; 80048; 80076; 80305; 81003; 82010; 82550; 82553; 82607; 82728; 82746; 82962; 83036; 83735; 83880; 84484; 85025; 93005; 93970; 96360; 99285; J0360; J0885; J1308; J1650; J1815; J1938; J7030